=== PATIENT | female | born 2005 | race Caucasian/White ===

== ENCOUNTER 2025-02-04 12:42 | Emergency (ER) | payer MEDICAID ==
[~2025-02-04] VITALS: Ht 162.6 cm; Wt 66.0 kg
[2025-02-04 12:56] VITALS: O2SAT 100
[2025-02-04] MEDS ORDERED: BISA10EN RC (15:41)
[2025-02-04] MEDS ORDERED: POLY17PO3 MT (15:41)
[2025-02-04 15:54] VITALS: BP 101/58; PULSE 98; RESP 18; TEMP 36.9; O2SAT 100
== END 2025-02-04 15:54 | disposition home or self-care (01) ==
LOC: ER 12:42
DX: K59.00 Constipation, unspecified (principal); Z79.899 Other long term (current) drug therapy
CPT/HCPCS: 99282